=== PATIENT | female | born 1970 | race Caucasian/White ===

== ENCOUNTER 2020-11-05 08:34 | Emergency (ER) | payer BC ==
[2020-11-05] MEDS ORDERED: Fluorescein Opthalmic Strip ONE (08:54)
[2020-11-05] MEDS ORDERED: Proparacaine 0.5% Opth 15 ML BOT ONE (08:54)
== END 2020-11-05 09:31 | disposition home or self-care (01) ==
LOC: ERS 08:34
DX: H53.8 Other visual disturbances (principal); H57.12 Ocular pain, left eye; R21 Rash and other nonspecific skin eruption
CPT/HCPCS: 99283